=== PATIENT | female | born 2000 | race Caucasian/White ===

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

== ENCOUNTER 2022-01-23 23:36 | Emergency (ER) | payer OTHER ==
[2022-01-24 01:47] LABS: HEMOGLOBIN 13.9 gm/dl (12.3-15.3); RED BLOOD COUNT 4.87 M/UL (4.00-5.10); WHITE BLOOD COUNT 8.3 K/UL (4.5-11.0)
[2022-01-24 02:11] LABS: BUN/CREATININE RATIO 20 (0-10)
[2022-01-27 03:11] LABS: CHLAMYDIA TRACHOMATIS, NAA Negative (Negative); NEISSERIA GONORRHOEAE, NAA Negative (Negative)
== END 2022-01-24 02:49 | disposition home or self-care (01) ==
LOC: ER1 23:36
PROVIDERS: Physician Assistant; Student in an Organized Health Care Education/Training Program
DX: B37.3 Candidiasis of vulva and vagina (principal); E10.65 Type 1 diabetes mellitus with hyperglycemia; F84.0 Autistic disorder
CPT/HCPCS: 80053; 81001; 82009; 82800; 82962; 84703; 85025; 87210; 99283